=== PATIENT | female | born 1965 | race African-American/Black ===

== ENCOUNTER 2023-08-07 13:45 | Inpatient (IN) | payer OTHER ==
[~2023-08-07 13:45] MED LIST: Iopamidol-370 76% 500 ML MDV (1 ML CHARGE) ONE
[2023-08-07] MEDS ORDERED: levETIRAcetam 500 MG (5 mL) VIAL ONE (14:06)
[2023-08-07 14:14] LABS: #Basophils Less than 0.03 10x3/uL (0.0-0.2); %Basophils 0.4 % (0.0-1.0); %Eosinophils 0.9 % (0.0-10.0); %Lymphocytes 38.9 % (21.0-51.0); %Monocytes 10.1 % (0.0-10.0); %Neutrophils 49.3 % (42.0-75.0); Hemoglobin 10.4 g/dL (12.0-16.0); Mean Corpuscular HGB CONC 33.5 g/dL (32.0-36.0); Mean Corpuscular Volume 92.5 fL (78.0-98.0); Mean Platelet Volume 9.8 fL (7.4-10.4); Platelet Count 218 10x3/uL (130-400); RBC Distribution Width 14.4 % (11.5-14.5); Red Blood Cell (RBC) Count 3.35 mill/uL (4.20-5.40)
[2023-08-07 14:23] LABS: Acetaminophen Less than 10 mcg/mL (10.0-30.0); Alcohol Less than 10.0 mg/dL (Less than 10); Lipase 24 U/L (8-78); Magnesium 1.7 mg/dL (1.6-2.6); Salicylate Less than 8.0 mg/dL (15.0-30.0)
[2023-08-07 14:25] LABS: ALT (SGPT) 12 U/L (8-55); AST (SGOT) 12 U/L (5-34); Albumin 3.3 g/dL (3.5-5.0); Alkaline Phosphatase 61 U/L (40-110); Anion Gap 11 mmol/L (10-20); BUN (Urea Nitrogen) 12 mg/dL (9.8-20.1); Bilirubin, Total 0.6 mg/dL (0.2-1.2); Calc. Creatinine Clearance 0 mL/min (70-130); Calcium 10.8 mg/dL (7.8-10.44); Carbon Dioxide 24 mmol/L (22-29); Chloride 109 mmol/L (98-107); Estimated GFR 78; Glucose 99 mg/dL (70-105); Potassium 3.8 mmol/L (3.5-5.1); Protein, Total 6.3 g/dL (6.0-8.3); Sodium 140 mmol/L (136-145)
[2023-08-07 14:28] LABS: PTT 32.8 sec (22.9-36.1)
[2023-08-07 14:29] LABS: INR-International Normal Ratio 1.1; Prothrombin Time 14.6 sec (12.0-14.7)
[2023-08-07 14:30] LABS: Troponin I Less than 0.010 ng/mL (< 0.028)
[2023-08-07] MEDS ORDERED: Dexamethasone 10 MG/ML VIAL ONE (16:09)
[2023-08-07] MEDS ORDERED: Calcium Carbonate 500 MG ChewTAB PO PRN (16:26)
[2023-08-07] MEDS ORDERED: HumaLOG 300 UNITS/3 ML VIAL SC PRN (16:53)
[2023-08-07] MEDS ORDERED: Glucagon 1 MG/ML KIT IM PRN (16:53)
[2023-08-07] MEDS ORDERED: Dextrose 5% in Water 1,000 ML IV PRN (16:53)
[2023-08-07] MEDS ORDERED: Dextrose 50% Abboject 50 ML SYRINGE SLOW IVP PRN (16:53)
[2023-08-07] MEDS ORDERED: HumaLOG 300 UNITS/3 ML VIAL SC SCH (17:00)
[2023-08-07 18:37] VITALS: BMI 23.8
[2023-08-07] MEDS: Mometasone 200 MCG/Formoterol 5 MCG 120 PUFF INHALER INH SCH (19:53)
[2023-08-07] MEDS: Loratadine 10 MG TAB PO SCH (20:18)
[2023-08-07] MEDS: Losartan 25 MG TAB PO SCH (20:18)
[2023-08-07] MEDS: DULoxetine 60 MG CAP PO SCH (20:18)
[2023-08-07] MEDS: Atorvastatin Calcium 40 MG TAB PO SCH (20:19)
[2023-08-07] MEDS: hydrALAZINE 25 MG TAB PO SCH (20:19)
[2023-08-07] MEDS: Famotidine 20 MG TAB PO SCH (20:19)
[2023-08-07] MEDS: Carvedilol 25 MG TAB PO SCH (20:22)
[2023-08-07] MEDS ORDERED: Pregabalin 75 MG CAP PO SCH (21:00)
[2023-08-07] MEDS: Acetaminophen 325 MG TAB PO PRN (23:32)
[2023-08-08] MEDS: HumaLOG 300 UNITS/3 ML VIAL SC PRN (05:57)
[2023-08-08] MEDS: valACYclovir 500 MG TAB PO SCH (08:22)
[2023-08-08] MEDS: Donepezil HCl 5 MG TAB PO SCH (08:22)
[2023-08-08] MEDS: Sertraline 25 MG TAB PO SCH (08:22)
[2023-08-08] MEDS: Doxazosin 2 MG TAB PO SCH (08:22)
[2023-08-08] MEDS: Aspirin 81 mg Enteric Coated Tablet PO SCH (08:23)
[2023-08-08] MEDS: Enoxaparin 40 MG (0.4 mL) SYRINGE SC SCH (08:23)
[2023-08-08] MEDS: Clopidogrel Bisulfate 75 MG TAB PO SCH (08:23)
[2023-08-08] MEDS: Cholecalciferol 1,000 UNITS (25 MCG) TAB PO SCH (08:23)
[2023-08-08] MEDS: Montelukast Sodium 10 mg Tablet PO SCH (08:23)
[2023-08-08] MEDS ORDERED: Insulin Glargine 30 UNITS/0.3 ML VIAL SC SCH (09:00)
[2023-08-08] MEDS ORDERED: Enoxaparin 40 MG (0.4 mL) SYRINGE SC SCH (09:00)
[2023-08-08] MEDS ORDERED: Amlodipine 10 MG TAB PO SCH (09:00)
[2023-08-08] MEDS: levETIRAcetam 500 MG TAB PO SCH (21:30)
[2023-08-09] MEDS: Amlodipine 5 MG TAB PO SCH (08:31)
[2023-08-09 10:04] LABS: #Basophils Less than 0.03 10x3/uL (0.0-0.2); #Eosinphils Less than 0.03 10x3/uL (0.0-0.7); %Basophils 0.3 % (0.0-1.0); %Eosinophils 0.3 % (0.0-10.0); %Lymphocytes 48.4 % (21.0-51.0); %Monocytes 8.1 % (0.0-10.0); %Neutrophils 42.6 % (42.0-75.0); Hematocrit 30.8 % (36.0-47.0); Hemoglobin 10.2 g/dL (12.0-16.0); Mean Corpuscular HGB CONC 33.1 g/dL (32.0-36.0); Mean Corpuscular Hemoglobin 30.9 pg (27.0-31.0); Mean Corpuscular Volume 93.3 fL (78.0-98.0); Mean Platelet Volume 9.9 fL (7.4-10.4); Platelet Count 196 10x3/uL (130-400); RBC Distribution Width 14.8 % (11.5-14.5)
[2023-08-09 10:20] LABS: Anion Gap 13 mmol/L (10-20); BUN (Urea Nitrogen) 11 mg/dL (9.8-20.1); Calc. Creatinine Clearance 70 mL/min (70-130); Calcium 10.8 mg/dL (7.8-10.44); Carbon Dioxide 21 mmol/L (22-29); Chloride 109 mmol/L (98-107); Estimated GFR 83; Glucose 141 mg/dL (70-105); Potassium 3.7 mmol/L (3.5-5.1); Sodium 139 mmol/L (136-145)
[2023-08-10] MEDS: Acetaminophen 325 MG TAB PO PRN (08:59)
[2023-08-10 09:07] LABS: Anion Gap 12 mmol/L (10-20); BUN (Urea Nitrogen) 9 mg/dL (9.8-20.1); Calc. Creatinine Clearance 71 mL/min (70-130); Calcium 10.8 mg/dL (7.8-10.44); Carbon Dioxide 22 mmol/L (22-29); Chloride 108 mmol/L (98-107); Estimated GFR 85; Glucose 116 mg/dL (70-105); Potassium 3.8 mmol/L (3.5-5.1); Sodium 138 mmol/L (136-145)
[2023-08-10 09:49] LABS: #Basophils Less than 0.03 10x3/uL (0.0-0.2); %Basophils 0.2 % (0.0-1.0); %Eosinophils 0.5 % (0.0-10.0); %Lymphocytes 40.8 % (21.0-51.0); %Monocytes 9.2 % (0.0-10.0); %Neutrophils 49.1 % (42.0-75.0); Hematocrit 31.7 % (36.0-47.0); Hemoglobin 10.4 g/dL (12.0-16.0); Mean Corpuscular HGB CONC 32.8 g/dL (32.0-36.0); Mean Corpuscular Hemoglobin 31.1 pg (27.0-31.0); Mean Corpuscular Volume 94.9 fL (78.0-98.0); Mean Platelet Volume 10.4 fL (7.4-10.4); Platelet Count 216 10x3/uL (130-400); Red Blood Cell (RBC) Count 3.34 mill/uL (4.20-5.40)
[2023-08-10 12:45] LABS: #Basophils Less than 0.03 10x3/uL (0.0-0.2); %Basophils 0.3 % (0.0-1.0); %Eosinophils 0.6 % (0.0-10.0); %Lymphocytes 37.9 % (21.0-51.0); %Monocytes 9.2 % (0.0-10.0); %Neutrophils 51.6 % (42.0-75.0); Hematocrit 32.5 % (36.0-47.0); Hemoglobin 10.7 g/dL (12.0-16.0); Mean Corpuscular HGB CONC 32.9 g/dL (32.0-36.0); Mean Corpuscular Hemoglobin 30.2 pg (27.0-31.0); Mean Corpuscular Volume 91.8 fL (78.0-98.0); Mean Platelet Volume 10.4 fL (7.4-10.4); Platelet Count 210 10x3/uL (130-400); RBC Distribution Width 14.7 % (11.5-14.5); Red Blood Cell (RBC) Count 3.54 mill/uL (4.20-5.40)
[2023-08-10 13:07] LABS: Troponin I Less than 0.010 ng/mL (< 0.028)
[2023-08-10 16:36] LABS: ALT (SGPT) 12 U/L (8-55); AST (SGOT) 17 U/L (5-34); Albumin 3.4 g/dL (3.5-5.0); Alkaline Phosphatase 56 U/L (40-110); Anion Gap 15 mmol/L (10-20); BUN (Urea Nitrogen) 10 mg/dL (9.8-20.1); Bilirubin, Total 0.7 mg/dL (0.2-1.2); Calc. Creatinine Clearance 67 mL/min (70-130); Calcium 11.1 mg/dL (7.8-10.44); Carbon Dioxide 18 mmol/L (22-29); Chloride 107 mmol/L (98-107); Estimated GFR 79; Glucose 161 mg/dL (70-105); Magnesium 1.7 mg/dL (1.6-2.6); Phosphorus 2.7 mg/dL (2.3-4.7); Potassium 4.5 mmol/L (3.5-5.1); Protein, Total 6.5 g/dL (6.0-8.3); Sodium 135 mmol/L (136-145)
[2023-08-10 16:39] LABS: Globulin 3.2 g/dL (2.4-3.5)
[2023-08-11] MEDS: Cephalexin 250 MG CAP PO SCH (19:04)
[2023-08-12 03:58] VITALS: TEMP 98.5
[2023-08-12] MEDS: levETIRAcetam 500 MG TAB PO SCH (08:33)
[2023-08-12 11:40] VITALS: BP 98/56
== END 2023-08-12 13:01 | disposition home or self-care (01) | DRG 69 ==
LOC: ERS 13:45 → 2SE 15:23 → ERS 17:27 → 2SE 08-11 12:45
PROVIDERS: ADMIT Family Medicine; ATTEND Family Medicine
PROC: 4A00X4Z Measurement of Central Nervous Electrical Activity, External Approach (ICD-10-PCS; principal; 2023-08-07)
PROC: 4A00X4Z Measurement of Central Nervous Electrical Activity, External Approach (ICD-10-PCS; 2023-08-11)
DX: G45.9 Transient cerebral ischemic attack, unspecified (principal); G92.8 Other toxic encephalopathy; L03.113 Cellulitis of right upper limb; R56.9 Unspecified convulsions; E11.9 Type 2 diabetes mellitus without complications; I10 Essential (primary) hypertension; K21.9 Gastro-esophageal reflux disease without esophagitis; I25.10 Atherosclerotic heart disease of native coronary artery without angina pectoris; F32.9 Major depressive disorder, single episode, unspecified; J44.9 Chronic obstructive pulmonary disease, unspecified; H54.7 Unspecified visual loss; M19.90 Unspecified osteoarthritis, unspecified site; F41.9 Anxiety disorder, unspecified; D64.9 Anemia, unspecified; G93.9 Disorder of brain, unspecified; E83.52 Hypercalcemia; Z87.891 Personal history of nicotine dependence
CPT/HCPCS: 36415; 36416; 70450; 70496; 70498; 70551; 80048; 80053; 80307; 82140; 82607; 83690; 83735; 83880; 84100; 84146; 84425; 84443; 84484; 85025; 85610; 85730; 93005; 93010; 95700; 95712; 95816; 95819; 96365; 96375; J1100; J1650; J1815; J1953; Q9967

== ENCOUNTER 2023-09-07 10:34 | Emergency (ER) | payer OTHER ==
[2023-09-07 11:50] LABS: #Basophils 0.03 10x3/uL (0.0-0.2); %Basophils 0.4 % (0.0-1.0); %Eosinophils 1.3 % (0.0-10.0); %Lymphocytes 27.3 % (21.0-51.0); %Neutrophils 63.7 % (42.0-75.0); Hematocrit 34.5 % (36.0-47.0); Hemoglobin 11.4 g/dL (12.0-16.0); Mean Corpuscular Hemoglobin 30.6 pg (27.0-31.0); Mean Corpuscular Volume 92.5 fL (78.0-98.0); Mean Platelet Volume 10.2 fL (7.4-10.4); Platelet Count 225 10x3/uL (130-400); RBC Distribution Width 14.7 % (11.5-14.5); Red Blood Cell (RBC) Count 3.73 mill/uL (4.20-5.40)
[2023-09-07 12:06] LABS: ALT (SGPT) 11 U/L (8-55); AST (SGOT) 9 U/L (5-34); Albumin 3.7 g/dL (3.5-5.0); Alkaline Phosphatase 82 U/L (40-110); Anion Gap 13 mmol/L (10-20); BUN (Urea Nitrogen) 14 mg/dL (9.8-20.1); Bilirubin, Total 0.4 mg/dL (0.2-1.2); Calc. Creatinine Clearance 0 mL/min (70-130); Carbon Dioxide 22 mmol/L (22-29); Chloride 107 mmol/L (98-107); Estimated GFR 48; Globulin 3.6 g/dL (2.4-3.5); Glucose 205 mg/dL (70-105); Lipase 22 U/L (8-78); Magnesium 1.8 mg/dL (1.6-2.6); Potassium 4.9 mmol/L (3.5-5.1); Protein, Total 7.3 g/dL (6.0-8.3); Sodium 137 mmol/L (136-145)
[2023-09-07] MEDS ORDERED: levETIRAcetam 500 MG (5 mL) VIAL ONE (12:48)
[2023-09-07 15:20] LABS: Bacteria/HPF 3+ HPF (None Seen); Bilirubin Negative (Negative); Blood, Urine Negative (Negative); CAUTI Indications for Culture Alt mental st,lethar; Glucose, Urine (Dipstick) Normal (Negative); Ketone, Urine Negative (Negative); Leukocyte 75 Leu/uL (Negative); Nitrite Negative (Negative); Protein, Urine (Dipstick) 10 mg/dL (Neg-Trace); RBC/HPF 0-3 HPF (0-3); Specific Gravity, Urine 1.027 (1.002-1.036); Squamous Epithelial 21-50 HPF (0-3); Urobilinogen Greater than 12 mg/dL (Less than 2); pH, Urine 6.5 (5.0-9.0)
[2023-09-07 15:24] LABS: Clarity Cloudy (Clear)
[2023-09-07 15:26] LABS: Urine Culture Reflex No No
== END 2023-09-07 16:01 | disposition home or self-care (01) ==
LOC: ERS 10:34
DX: N17.9 Acute kidney failure, unspecified (principal); R56.9 Unspecified convulsions; E11.9 Type 2 diabetes mellitus without complications; I10 Essential (primary) hypertension; F17.210 Nicotine dependence, cigarettes, uncomplicated
CPT/HCPCS: 71045; 80053; 81001; 83690; 83735; 84484; 85025; 93005; 96361; 96365; 99285; J1953; 36416

== ENCOUNTER 2024-02-26 12:15 | Inpatient (IN) | payer OTHER, MEDICAID ==
[2024-02-26] MEDS ORDERED: Iopamidol-370 76% 500 ML MDV (1 ML CHARGE) ONE (12:57)
[2024-02-26 13:55] LABS: #Basophils Less than 0.03 10x3/uL (0.0-0.2); %Basophils 0.3 % (0.0-1.0); %Eosinophils 0.8 % (0.0-10.0); %Lymphocytes 24.8 % (21.0-51.0); %Monocytes 8.4 % (0.0-10.0); %Neutrophils 65.4 % (42.0-75.0); Hematocrit 32.1 % (36.0-47.0); Hemoglobin 10.7 g/dL (12.0-16.0); Mean Corpuscular HGB CONC 33.3 g/dL (32.0-36.0); Mean Corpuscular Hemoglobin 31.2 pg (27.0-31.0); Mean Corpuscular Volume 93.6 fL (78.0-98.0); Mean Platelet Volume 10.8 fL (7.4-10.4); Platelet Count 163 10x3/uL (130-400); RBC Distribution Width 12.8 % (11.5-14.5); Red Blood Cell (RBC) Count 3.43 mill/uL (4.20-5.40)
[2024-02-26 14:10] LABS: INR-International Normal Ratio 1.1; PTT 30.4 sec (22.9-36.1); Prothrombin Time 14.6 sec (12.0-14.7)
[2024-02-26 14:14] LABS: ALT (SGPT) 24 U/L (8-55); AST (SGOT) 18 U/L (5-34); Albumin 3.6 g/dL (3.5-5.0); Alkaline Phosphatase 70 U/L (40-110); Anion Gap 12 mmol/L (10-20); BUN (Urea Nitrogen) 16 mg/dL (9.8-20.1); Bilirubin, Total 0.4 mg/dL (0.2-1.2); Calc. Creatinine Clearance 0 mL/min (70-130); Calcium 10.1 mg/dL (7.8-10.44); Carbon Dioxide 21 mmol/L (22-29); Chloride 106 mmol/L (98-107); Estimated GFR 70; Globulin 2.8 g/dL (2.4-3.5); Glucose 246 mg/dL (70-105); Potassium 4.1 mmol/L (3.5-5.1); Protein, Total 6.4 g/dL (6.0-8.3); Sodium 135 mmol/L (136-145)
[2024-02-26 14:20] LABS: Troponin I Less than 0.010 ng/mL (< 0.028)
[2024-02-26] MEDS ORDERED: diphenhydrAMINE 50 MG/ML VIAL ONE (15:27)
[2024-02-26] MEDS ORDERED: Aspirin Chewable 81 MG TAB ONE (15:27)
[2024-02-26] MEDS ORDERED: Prochlorperazine 10 MG/2 ML VIAL ONE (15:27)
[2024-02-26 16:48] LABS: Bacteria/HPF None Seen HPF (None Seen); Bilirubin Negative (Negative); Blood, Urine Negative (Negative); CAUTI Indications for Culture Alt mental st,lethar; Clarity Clear (Clear); Glucose, Urine (Dipstick) Greater than 1000 mg/dL (Negative); Ketone, Urine Negative (Negative); Leukocyte Negative Leu/uL (Negative); Nitrite Negative (Negative); Protein, Urine (Dipstick) Negative (Neg-Trace); RBC/HPF 0-3 HPF (0-3); Specific Gravity, Urine 1.039 (1.002-1.036); Squamous Epithelial 0-3 HPF (0-3); Urobilinogen Normal mg/dL (Less than 2); WBC/HPF 0-3 HPF (0-3)
[2024-02-26 16:57] LABS: Urine Culture Reflex No No
[2024-02-26] MEDS ORDERED: Dextrose 50% Abboject 50 ML SYRINGE SLOW IVP PRN (16:57)
[2024-02-26] MEDS ORDERED: Insulin Lispro 100 UNIT/ML 10 ML VIAL SC PRN ×2 (16:57)
[2024-02-26] MEDS ORDERED: Glucagon 1 MG/ML KIT IM PRN (16:57)
[2024-02-26] MEDS ORDERED: Dextrose 5% in Water 1,000 ML IV PRN (16:57)
[2024-02-26 18:01] LABS: Hemoglobin A1c 6.8 % (4.0-6.0)
[2024-02-26 18:03] LABS: Glucose 173 mg/dL (70-105)
[2024-02-26 19:06] VITALS: BMI 21.6
[2024-02-26 21:17] LABS: Glucose 130 mg/dL (70-105)
[2024-02-26] MEDS: Pregabalin 75 MG CAP PO SCH (21:57)
[2024-02-26] MEDS: Montelukast Sodium 10 mg Tablet PO SCH (21:57)
[2024-02-26] MEDS: levETIRAcetam 500 MG TAB PO SCH (21:57)
[2024-02-26] MEDS: Atorvastatin Calcium 40 MG TAB PO SCH (21:57)
[2024-02-26] MEDS: Famotidine 20 MG TAB PO SCH (21:57)
[2024-02-27 04:21] LABS: Anion Gap 11 mmol/L (10-20); BUN (Urea Nitrogen) 11 mg/dL (9.8-20.1); Calc. Creatinine Clearance 78 mL/min (70-130); Calcium 10.4 mg/dL (7.8-10.44); Carbon Dioxide 23 mmol/L (22-29); Cardiac Risk 2.9 (Less than 4.5); Chloride 108 mmol/L (98-107); Cholesterol 112 mg/dl (< 200 Desired); Estimated GFR 100; Glucose 100 mg/dL (70-105); HDL Cholesterol 38 mg/dL (>60 Neg Risk); LDL Cholesterol, Calculated 58 mg/dL; Potassium 3.6 mmol/L (3.5-5.1); Sodium 138 mmol/L (136-145); Triglycerides 80 mg/dL (Less than 150)
[2024-02-27 04:24] LABS: #Basophils Less than 0.03 10x3/uL (0.0-0.2); %Basophils 0.4 % (0.0-1.0); %Eosinophils 1.3 % (0.0-10.0); %Lymphocytes 52.9 % (21.0-51.0); %Monocytes 8.6 % (0.0-10.0); %Neutrophils 36.6 % (42.0-75.0); Hematocrit 33.6 % (36.0-47.0); Hemoglobin 10.9 g/dL (12.0-16.0); Mean Corpuscular HGB CONC 32.4 g/dL (32.0-36.0); Mean Corpuscular Hemoglobin 30.7 pg (27.0-31.0); Mean Corpuscular Volume 94.6 fL (78.0-98.0); Mean Platelet Volume 10.9 fL (7.4-10.4); Platelet Count 175 10x3/uL (130-400); RBC Distribution Width 12.9 % (11.5-14.5); Red Blood Cell (RBC) Count 3.55 mill/uL (4.20-5.40)
[2024-02-27] MEDS: Mometasone 200 MCG/Formoterol 5 MCG 120 PUFF INHALER INH SCH (06:50)
[2024-02-27 07:51] LABS: Glucose 81 mg/dL (70-105)
[2024-02-27] MEDS: Aspirin 81 mg Enteric Coated Tablet PO SCH (08:31)
[2024-02-27] MEDS: Clopidogrel Bisulfate 75 MG TAB PO SCH (08:31)
[2024-02-27] MEDS: Sertraline 25 MG TAB PO SCH (08:32)
[2024-02-27] MEDS: Donepezil HCl 5 MG TAB PO SCH (08:32)
[2024-02-27 19:26] LABS: Troponin I Less than 0.010 ng/mL (< 0.028)
[2024-02-27 20:33] LABS: HIV (1/2) Antibody/Antigen NONREACTIVE (NonReactive); HIV 1/2 INDEX 0.06 S/CO (<1.00)
[2024-02-27] MEDS: DULoxetine 60 MG CAP PO SCH (21:49)
[2024-02-27] MEDS: Acetaminophen 325 MG TAB PO PRN (21:49)
[2024-02-28 04:56] LABS: #Basophils 0.04 10x3/uL (0.0-0.2); %Basophils 0.7 % (0.0-1.0); %Eosinophils 1.4 % (0.0-10.0); %Lymphocytes 59.3 % (21.0-51.0); %Monocytes 8.8 % (0.0-10.0); %Neutrophils 29.6 % (42.0-75.0); Hematocrit 33.8 % (36.0-47.0); Hemoglobin 11.1 g/dL (12.0-16.0); Mean Corpuscular HGB CONC 32.8 g/dL (32.0-36.0); Mean Corpuscular Hemoglobin 30.7 pg (27.0-31.0); Mean Corpuscular Volume 93.4 fL (78.0-98.0); Platelet Count 166 10x3/uL (130-400); RBC Distribution Width 12.8 % (11.5-14.5); Red Blood Cell (RBC) Count 3.62 mill/uL (4.20-5.40)
[2024-02-28 05:19] LABS: Anion Gap 11 mmol/L (10-20); BUN (Urea Nitrogen) 10 mg/dL (9.8-20.1); Calc. Creatinine Clearance 67 mL/min (70-130); Calcium 10.3 mg/dL (7.8-10.44); Carbon Dioxide 23 mmol/L (22-29); Chloride 106 mmol/L (98-107); Estimated GFR 82; Glucose 163 mg/dL (70-105); Potassium 3.7 mmol/L (3.5-5.1); Sodium 136 mmol/L (136-145)
[2024-02-28] MEDS: Doxazosin 2 MG TAB PO SCH (09:07)
[2024-02-28] MEDS: Amlodipine 5 MG TAB PO SCH (09:07)
[2024-02-28] MEDS: Empagliflozin 10 MG TAB PO SCH (09:07)
[2024-02-28 09:38] LABS: Amphetamine Not Detected (NotDetected); Barbiturates Screen Not Detected (NotDetected); Benzodiazepine Screen Not Detected (NotDetected); Cocaine Metabolite Screen Not Detected (NotDetected); Methadone Not Detected (NotDetected); Methamphetamine Not Detected (NotDetected); Opiate Screen Not Detected (NotDetected); Oxycodone Screen Not Detected (NotDetected); Phencyclidine (PCP) Not Detected (NotDetected); THC/Cannabinoid Screen Not Detected (NotDetected); Tricyclic Screen Not Detected (NotDetected)
[2024-02-28 12:13] LABS: Syphilis Antibody Index 5.46 S/CO (<1.00 Non-Reactive)
[2024-02-28 12:23] LABS: Syphilis Antibody INDETERMINATE (Nonreactive); Syphilis Titer Non-Reactive Titer (Negative)
[2024-02-28] MEDS: Lidocaine 4% Patch TD SCH (14:39)
[2024-02-28] MEDS: Carvedilol 25 MG TAB PO SCH (16:55)
[2024-02-28] MEDS: Losartan 25 MG TAB PO SCH (21:24)
[2024-02-28] MEDS: [UNRECOGNIZED DRUG - REMARK] TOP SCH (21:26)
[2024-02-29 03:59] LABS: #Basophils Less than 0.03 10x3/uL (0.0-0.2); %Basophils 0.3 % (0.0-1.0); %Eosinophils 0.8 % (0.0-10.0); %Lymphocytes 52.7 % (21.0-51.0); %Monocytes 10.1 % (0.0-10.0); %Neutrophils 35.8 % (42.0-75.0); Hematocrit 34.7 % (36.0-47.0); Hemoglobin 11.3 g/dL (12.0-16.0); Mean Corpuscular HGB CONC 32.6 g/dL (32.0-36.0); Mean Corpuscular Hemoglobin 30.6 pg (27.0-31.0); Mean Platelet Volume 10.9 fL (7.4-10.4); Platelet Count 153 10x3/uL (130-400); RBC Distribution Width 12.7 % (11.5-14.5); Red Blood Cell (RBC) Count 3.69 mill/uL (4.20-5.40)
[2024-02-29 04:13] LABS: Anion Gap 11 mmol/L (10-20); BUN (Urea Nitrogen) 14 mg/dL (9.8-20.1); Calc. Creatinine Clearance 61 mL/min (70-130); Calcium 10.6 mg/dL (7.8-10.44); Carbon Dioxide 27 mmol/L (22-29); Chloride 107 mmol/L (98-107); Estimated GFR 74; Glucose 138 mg/dL (70-105); Sodium 141 mmol/L (136-145)
[2024-02-29] MEDS: Lidocaine 4% Patch TD SCH (08:57)
[2024-02-29] MEDS: Lorazepam 1 MG TAB PO PRN (09:57)
[2024-02-29 21:06] VITALS: BP 155/72; TEMP 96.7
== END 2024-03-01 14:58 | disposition home or self-care (01) | DRG 65 ==
LOC: ERS 12:15 → 2NO 16:34 → OBSVTOIN 02-28 10:26
PROVIDERS: ADMIT Family Medicine; ATTEND Family Medicine
DX: I63.9 Cerebral infarction, unspecified (principal); E87.1 Hypo-osmolality and hyponatremia; F03.93 Unspecified dementia, unspecified severity, with mood disturbance; F03.94 Unspecified dementia, unspecified severity, with anxiety; G81.94 Hemiplegia, unspecified affecting left nondominant side; F32.A Depression, unspecified; F41.1 Generalized anxiety disorder; K21.9 Gastro-esophageal reflux disease without esophagitis; J44.9 Chronic obstructive pulmonary disease, unspecified; E11.319 Type 2 diabetes mellitus with unspecified diabetic retinopathy without macular edema; E11.65 Type 2 diabetes mellitus with hyperglycemia; D64.9 Anemia, unspecified; I10 Essential (primary) hypertension; R29.701 NIHSS score 1; D32.0 Benign neoplasm of cerebral meninges; F17.210 Nicotine dependence, cigarettes, uncomplicated; M19.90 Unspecified osteoarthritis, unspecified site; Z88.5 Allergy status to narcotic agent; Z88.8 Allergy status to other drugs, medicaments and biological substances; Z79.899 Other long term (current) drug therapy; Z79.51 Long term (current) use of inhaled steroids; Z79.02 Long term (current) use of antithrombotics/antiplatelets; Z79.84 Long term (current) use of oral hypoglycemic drugs; Z79.85 Long-term (current) use of injectable non-insulin antidiabetic drugs; Z90.710 Acquired absence of both cervix and uterus; Z84.89 Family history of other specified conditions
CPT/HCPCS: 36415; 36416; 70450; 70496; 70498; 70551; 70553; 71045; 76376; 80048; 80053; 80061; 80177; 80306; 80307; 81001; 82947; 83036; 84443; 84484; 85025; 85610; 85730; 86593; 86780; 87389; 93005; 93306; 94760; 96374; 96375; J0780; J1200; Q9967